=== PATIENT | male | born 1965 | race Caucasian/White ===

== ENCOUNTER → 2021-04-15 | Outpatient (CLI) | payer OTHER ==
[~2021-04-15] MED LIST: HYDROCHLOROTH12.5 M1 PO; LIPITOR10 MG PO; SUPER THERAVIT1 EACH PO; TOPROL XL25 MG PO; ZESTRIL40 MG PO
== END ==
LOC: SJCVCIMAG 08:17
PROVIDERS: ATTEND Internal Medicine
DX: R00.2 Palpitations (principal); I35.9 Nonrheumatic aortic valve disorder, unspecified; R00.8 Other abnormalities of heart beat; I10 Essential (primary) hypertension; E78.5 Hyperlipidemia, unspecified; I25.811 Atherosclerosis of native coronary artery of transplanted heart without angina pectoris; F17.210 Nicotine dependence, cigarettes, uncomplicated; Z88.0 Allergy status to penicillin; Z88.5 Allergy status to narcotic agent; Z79.899 Other long term (current) drug therapy

== ENCOUNTER → 2021-04-26 | Outpatient (CLI) | payer OTHER ==
[~2021-04-26] VITALS: Ht 167.6 cm; Wt 91.6 kg
[2021-04-26 08:18] VITALS: BP 143/73
[2021-04-26 08:31] LABS: ABSOLUTE NEUTROPHILS 5.3 thou/uL (1.4-8.2); EOSINOPHILS 4.7 % (0.0-3.0); HEMATOCRIT 46.4 % (42.0-52.0); HEMOGLOBIN 15.5 gm/dL (14.0-18.0); LYMPHOCYTES 20.3 % (24.0-44.0); MCH 28.9 pg (26.0-34.0); MCHC 33.3 g/dL (28.0-37.0); MCV 86.9 fL (80.0-100.0); MONOCYTES 8.6 % (1.0-8.0); PLATELET COUNT 262 thou/uL (150-400); POLYS 65.4 % (36.0-66.0); RBC 5.34 mil/uL (4.50-6.00); RDW 13.4 % (10.5-14.5); WBC 8.1 thou/uL (4.0-11.0)
[2021-04-26 08:39] LABS: CALCIUM 8.9 mg/dL (8.5-10.1); CREATININE 0.7 mg/dL (0.7-1.3); POTASSIUM 3.9 mmol/L (3.5-5.1)
--- NOTE | 2021-05-09 12:18 | CATHLAB ---
[facility] [place] [address] INVASIVE PROCEDURE REPORT Name: MIHAELA CHU Room #: REG AIME Luis#: [id number] Admission: 04/26/21 Attend Phys: Han Rodriguez Discharge: Date of : 63 Report #: [id number] THIS REPORT FOR: cc: Lindsey Dong MD, Cora A. MD Lammoglia, Francisco J. MD ~ APPROVED REPORT Study performed: 04/26/2021 11:02:55 Patient Details Patient Status: Out-Patient Room #: The patient is a 56 year-old male Event Personnel Leny Hampton RTR Monitor, Viki Aranda RTR ScrubMichael Francisco Bulb Weeder, Aishwarya Barajas RN relay assembler Performed Left Heart Cath w/or w/o Coronaries [id number] [facility] Art Access - R femoral artery* Hemostasis with Manual pressure 99389 Initial Mod Sed Same Phys/QHP Gr [id number] Mod Sed Same Phys/QHP Ea [id number], supervision of conscious sedation Indication Positive stress test, Chest pain Procedure Narrative The Right Groin^ was infiltrated with 1% Lidocaine subcutaneous anesthesia. A PINNACLE 4FR Sheath #[id number] sheath was inserted into the RFA^. Coronary angiography was performed using coronary diagnostic catheters. The right coronary system was accessed and visualized with a JR4 catheter. The left coronary system was accessed and visualized with a JL4 catheter. The left ventricle was accessed and visualized with a PIGTAIL catheter. Hemostasis was obtained with manual pressure following sheath removal without any complications. The patient tolerated the procedure well and there were no complications associated with the procedure. There was no hematoma. Intraoperative Conscious Sedation Sedation start time: 12:00 Case end Time: 12:30 [facility] [address] [place] [address] INVASIVE PROCEDURE REPORT Name: MIHAELA CHU Room #: REG [facility]#: [id number] Admission: 04/26/21 Attend Phys: Han Henriquez Discharge: Date of : 63 Report #: [id number] Versed 3 mg Fluoro Time: 1.80 minutes Dose: DAP 4310.10 cGycm2 670 mGy Contrast Type and Amount: Omnipaque 75 ml Coronary Angiography The patient's coronary anatomy is right dominant. Diagnostic Cath Left Main Large-caliber vessel normal origin trifurcates left anterior descending ramus intermedius and left circumflex. Is free of significant lesions or irregularities LAD Large-caliber type III vessel which gives rise to an early moderate caliber diagonal branch. Then continues with irregularities of less than 40% in the interventricular sulcus giving rise to septal diagonal branches and terminates a small caliber vessel in the inferoposterior aspect of the left ventricle. Diagonal 1 Moderate caliber vessel with luminal irregularities of less than 30% throughout its course. He has numerous bifurcations all of which are free of high-grade disease Diagonal 2 Small caliber vessel no significant high-grade lesions Circumflex Moderate to large caliber vessel coursing the AV groove posteriorly terminating the posterior wall branch and a small posterior left atrial branch. There is an early marginal versus ramus branch noted which we discussed below. OM1 Small caliber vessel with irregularities OM2 Diminutive vessel OM3 Moderate caliber vessel coursing in the posterior lateral aspect left ventricle with irregularities in its mid and distal third of 50% or less Right Coronary Large-caliber dominant vessel which courses in the AV groove giving rise to atrium ventricular branches breathing course of the crux of the heart with a moderate caliber posterior descending artery bifurcating early is identified as it courses posteriorly in the posterior interventricular sulcus. Distal portion of the right coronary is a smaller caliber vessel. No high-grade flow-limiting lesions noted although at the acute margin the RCA stent diameter rapidly tapers to moderate caliber R PDA Moderate caliber bifurcating vessel with irregularities of less than 50% no high-grade lesions Ramus Moderate to large caliber vessel with irregularities of less than 50% no high-grade lesion Left Ventriculography [facility] [address] [place] [address] INVASIVE PROCEDURE REPORT Name: CRISSYLAURIEMIHAELA Room #: [id number] Admission: 04/26/21 Attend Phys: Han Henriquez Discharge: Date of : 63 Report #: [id number] Left Ventriculography was not performed. Hemodynamics The aortic pressure is 129/70 mmHg with a mean of 67 mmHg. The left ventricular pressure is 141/-1 mmHg with a mean of mmHg. The left ventricular end diastolic pressure is 15 mmHg. Conclusion 1. Coronary disease moderate multivessel 2. Abnormal hemodynamics elevated low ventricular diastolic pressures Recommendations Cardiac Risk Reduction Program Medical Therapy <ELECTRONICALLY SIGNED> By: Han Rodriguez MD 05/09/21 1218 17 Han Rodriguez MD /INF
== END | disposition home or self-care (01) ==
LOC: CATH 07:35
PROVIDERS: ATTEND Internal Medicine
DX: R94.39 Abnormal result of other cardiovascular function study (principal); R07.9 Chest pain, unspecified; I25.10 Atherosclerotic heart disease of native coronary artery without angina pectoris; I10 Essential (primary) hypertension; E78.5 Hyperlipidemia, unspecified; F17.210 Nicotine dependence, cigarettes, uncomplicated; Z98.890 Other specified postprocedural states; Z79.899 Other long term (current) drug therapy; Z88.0 Allergy status to penicillin; Z88.6 Allergy status to analgesic agent